=== PATIENT | male | born 2000 | race Caucasian/White ===

== ENCOUNTER 2025-02-01 06:08 | Emergency (ER) | payer MEDICAID, SELFPAY ==
[2025-02-01 06:11] VITALS: BMI 37.1
[2025-02-01 06:16] VITALS: BP 139/84; PULSE 103; RESP 18; TEMP 36.6; O2SAT 99
[2025-02-01] MEDS: cefTRIAXone SOD INJ 1,000 MG VIAL 1000 MG IM (06:35)
[2025-02-01] MEDS: LIDOCAINE HCL 1% 20 ML VIAL 2.1 ML INFL (06:35)
--- NOTE | 2025-02-01 06:36 | EDNOTE_ITS ---
ED Skin Abcess FB-RME/HPI General Chief complaint: Skin/Abscess/Foreign Body Stated complaint: POSSIBLE ABCESS TO TAIL BONE AREA Time Seen by Provider: 02/01/25 06:16 Arrival date/time: 02/01/25 06:08 24-year-old male with no significant medical problems presents to the emergency department today for complaints of infection to his tailbone patient were symptoms ongoing for last couple of days patient reports no fever nausea vomiting but does report significant pain Limitations: no limitations Related Data Home Medications ?Medication ?Instructions ?Recorded ?Confirmed dextroamphetamine-amphetamine 30 70 mg PO QDAY 8 12/09/17 mg tablet (Adderall) Previous Rx's ?Medication ?Instructions ?Recorded clindamycin HCl 300 mg capsule 300 mg PO TID 7 days #2 1 caps 02/01/25 hydrocodone 5 mg-acetaminophen 325 1 tab PO BID PRN pa in #8 tabs 02/01/25 mg tablet ibuprofen 800 mg tablet 800 mg PO TID PRN pain #30 t abs 02/01/25 Allergies Allergy/AdvReac Type Severity Reaction Status Date / Time Penicillins Allergy Intermediate Rash Verified 02/01/25 06:14 Review of Systems Review of Systems Systems Reviewed: All systems reviewed, normal except as documented Constitutional Constitutional: Reports system reviewed and no additional complaints, except as documented, Denies fever(s) and Denies headache(s) Eyes Eyes: Reports system reviewed and no additional complaints, except as documented and Denies blurry vision ENT Ears, Nose, Mouth, and Throat: Reports system reviewed and no additional complaints, except as documented, Denies headache(s), Denies nasal congestion and Denies nasal discharge Cardiovascular Cardiovascular: Reports system reviewed and no additional complaints, except as documented, Denies chest pain and Denies dyspnea Respiratory Respiratory: Reports system reviewed and no additional complaints, except as documented, Denies chest congestion, Denies cough and Denies dyspnea Gastrointestinal Gastrointestinal: Reports system reviewed and no additional complaints, except as documented and Denies abdominal pain Integumentary/Breasts Skin/Breast: Reports system reviewed and no additional complaints, except as documented, Denies rash and Reports other (Pilonidal cyst) Neurologic Neurologic: Reports system reviewed and no additional complaints, except as documented, Reports as per HPI and Denies headache(s) Past Medical History Social History SMOKING STATUS: Never smoker ED Exam General Limitations: Present no limitations General appearance: Present alert and in no apparent distress Head Head exam: Present atraumatic Eye Eye exam: Present normal appearance, PERRL and EOMI ENT ENT exam: Present normal exam, normal oropharynx and mucous membranes moist Neck Neck exam: Present normal inspection, full ROM and trachea midline Chest Chest inspection: Present normal inspection and symmetric chest wall rise Respiratory Respiratory exam: Present normal lung sounds bilaterally Cardiovascular Cardiovascular exam: Present regular rate, normal rhythm and normal heart sounds Abdominal Exam Abdominal exam: Present soft and normal bowel sounds Extremities Exam Extremities exam: Present normal inspection and full ROM Back Exam Back exam: Present normal inspection and full ROM Neurological Exam Neurological exam: Present alert, oriented X3, CN II-XII intact, normal gait and reflexes normal; Absent motor sensory deficit Psychiatric Psychiatric exam: Present normal affect and normal mood Skin Skin exam: Present warm, dry and other (Infected pilonidal cyst) Course Quality Measures none Orders Category Date Time Status Set Up Suture Tray STAT Care 02/01/25 06:17 Active Wound Care NOW Care 02/01/25 06:17 Active HYDROcodone*/APAP 5/325 [Jackson 5/325] Med 02/01/25 06:17 Discontinued 1 tab PO X1 ONE Lidocaine 1% 20 ml [Xylocaine 1% 20 ML] Med 02/01/25 06:17 Discontinued 2.1 ml INFL X1 ONE Lidocaine 1% 20 ml [Xylocaine 1% 20 ML] Med 02/01/25 06:17 Discontinued 20 ml INFL X1 ONE TET,DIP/PERT AC (Adult)-Tdap [Boostrix Adult (Tdap) Med 02/01/25 06:17 Discontinued Vacc] 0.5 ml IMI .ONCE ONE cefTRIAXone [Rocephin] Med 02/01/25 06:17 Discontinued 1,000 mg IM X1 ONE Vital Signs Vital signs: Vital Signs Temperature 97.8 F 02/01/25 06:16 Pulse Rate 103 H 02/01/25 06:16 Respiratory Rate 18 02/01/25 06:16 Blood Pressure 139/84 H 02/01/25 06:16 Pulse Oximetry (%) 99 02/01/25 06:16 Oxygen Delivery Method Room Air 02/01/25 06:16 O2 saturation 99% on room air with normal limits Skin / Abscess / Foreign Body MDM Narrative MDM Narrative:: 24-year-old male with no significant medical problems presents to the emergency department today for complaints of infection to his tailbone patient were symptoms ongoing for last couple of days patient reports no fever nausea vomiting but does report significant pain On exam patient has what appears to be an infected pilonidal cyst I&D performed copious amounts of discharge/pus removed The area of concern has shrunk significantly. Patient given antibiotics and pain medication Patient discharged home in no distress to follow-up with primary care doctor in the next 24 to 48 hours and for any worsening symptoms to return to the ER immediately Patient data External records reviewed:: [facility] previous records Clinical information provided by:: patient Social determinants that could affect healthcare access:: none Patient has the following chronic illnesses:: None How is presenting disease/condition affected by chronic disease/condition?: no chronic disease Evaluation data The following diagnostics were reviewed and interpreted by me:: other (specify) (N/A) Lab and/or radiology exams considered but not ordered:: Consider not ordered Interpretation Summary: N/A Medications / Prescriptions Medications or Prescriptions considered but not ordered:: Given Medication administrations:: Medication Administration History Discontinued Medications Hydrocodone Bitart/Acetaminophen (Hydrocodone/Apap 5/325 Tablet) 1 tab PO X1 ONE Stop: 02/01/25 06:18 Last Admin: 02/01/25 06:38 Dose: 1 tab Documented By: CVL Ceftriaxone Sodium (Ceftriaxone Sod Inj 1,000 Mg Vial) 1,000 mg IM X1 ONE Stop: 02/01/25 06:18 Last Admin: 02/01/25 06:35 Dose: 1,000 mg Documented By: CVL Diphtheria/Tetanus/Acell Pertussis (Diphth,Pertuss(Acell),Tet Vac 0.5 Ml Syr- Adult) 0.5 ml IMi .ONCE ONE Stop: 02/01/25 06:18 Lidocaine HCl (Lidocaine Hcl 1% 20 Ml Vial) 20 ml INFL X1 ONE Stop: 02/01/25 06:18 Last Admin: 02/01/25 06:38 Dose: 20 ml Documented By: CVL Lidocaine HCl (Lidocaine Hcl 1% 20 Ml Vial) 2.1 ml INFL X1 ONE Stop: 02/01/25 06:18 Last Admin: 02/01/25 06:35 Dose: 2.1 ml Documented By: CVL Comments: mixed with rocephine Given Consultations Consultation(s) initiated? (list below): No Diagnosis Skin/Abscess Differential Diagnosis: abscess of skin or subcutaneous tissue, cellulitis and other (Infected pilonidal cyst) Most likely diagnosis given after review of the tests above:: Infected pilonidal cyst Admission Indicated Admission indicated?: not indicated Admission Request Was there a request for admission?: No Disposition Plan Disposition Plan: Discharge Discharge Attestation Discharge Attestation: The patient and all family members were given an opportunity to ask questions and understood the discharge instructions. Discharge instructions specifically effects, indications for sooner follow up or return to the emergency department, and the expected course of current diagnosis. Patient condition: Stable Discharge Plan Plan Patient Disposition: HOME (Self Care) Discharge Disposition comment: Stable Prescriptions/Referrals Prescriptions/Med Rec: New clindamycin HCl 300 mg capsule 300 mg PO TID 7 Days Qty: 21 0RF ibuprofen 800 mg tablet 800 mg PO TID PRN (Reason: pain) Qty: 30 0RF hydrocodone-acetaminophen 5-325 mg tablet 1 tab PO BID MDD 10 PRN (Reason: pain) Qty: 8 0RF No Action dextroamphetamine-amphetamine [Adderall] 30 mg Tablet 70 mg PO QDAY Problem List Clinical Impression: Infected pilonidal cyst Patient/Caregiver Discharge Instructions Education Materials: Pilonidal Cyst Additional Instructions: Please follow up with your primary care doctor in the next 24-48hrs for any worsening symptoms return here immediately Print Language: Georgian Stand Alone Forms: [employer] Award Info., Work/School Release, Patient Portal Info Letter PA/ENVIRONMENTAL ADVISOR Supervising Physician PA/ENVIRONMENTAL ADVISOR Supervising Physician: Dr. Celaya
[2025-02-01] MEDS: LIDOCAINE HCL 1% 20 ML VIAL INFL (06:38)
[2025-02-01] MEDS: HYDROcodone/APAP 5/325 TABLET 1 TAB PO (06:38)
[2025-02-01] MEDS: DIPHTH,PERTUSS(ACELL),TET VAC 0.5 ML SYR- ADULT IMi (06:44)
[2025-02-01 06:53] VITALS: RESP 16
== END 2025-02-01 06:55 | disposition home or self-care (01) ==
PROVIDERS: Emergency Provider Emergency Medicine
DX: L05.91 Pilonidal cyst without abscess (principal)
CPT/HCPCS: 10080; 90715; 96372; 99284; J0696; J3490; A9270

== ENCOUNTER 2025-04-14 23:45 | Emergency (ER) | payer SELFPAY ==
[2025-04-14 23:47] VITALS: BMI 37.3
[2025-04-15 00:07] VITALS: BP 138/88; PULSE 94; RESP 18; TEMP 37.2; O2SAT 97
--- NOTE | 2025-04-15 00:27 | XR_ITS ---
Examination: CT brain head without contrast. 2-D sagittal coronal reconstructions Date and time of exam:April 15, 2025, 0036 hrs., Comparison 04/05/2012 Indications: Ground-level fall today with laceration to the head CTDI: vol (mGy):56 DLP: (mGycm):1221 Technique: Multiple CT axial sections of the brain have been obtained, 5 mm slice thickness. Contrast has not been administered. 2-D sagittal, coronal reconstructions have been obtained Low dose protocols were performed. One or more of the following dose reduction techniques were used; automated exposure control, adjustment of the mA and/or KV according to patient size, use of iterative reconstruction technique. Findings: No significant ventricular enlargement. Intra-axial or extra-axial hemorrhage density is not seen. No mass effect or midline shift Basal cisterns are not remarkable. Fourth ventricle is midline. Cranial vault intact. Impression: Negative for acute hemorrhage, mass effect or midline shift Advise clinical correlation follow-up accordingly
--- NOTE | 2025-04-15 00:35 | PD.EDHEAD ---
ED Head Injury RME/HPI General Chief complaint: Head Injury Stated complaint: HEAD INJURY Time Seen by Provider: 04/15/25 00:27 Arrival date/time: 04/14/25 23:45 24M with no significant PMH presents to ED with head pain/lac after falling back while sitting and hitting back of head at work. Patient denies LOC, AMS, seizures, N/V, and vision changes. Nothing coming out of ears/nose. Patient has had a tetanus shot in the past 5 years. Limitations: no limitations Related Data Home Medications ?Medication ?Instructions ?Recorded ?Confirmed dextroamphetamine-amphetamine 30 70 mg PO QDAY 12/09/17 12/09/17 mg tablet (Adderall) Previous Rx's ?Medication ?Instructions ?Recorded hydrocodone 5 mg-acetaminophen 325 1 tab PO BID PRN pain #8 tabs 02/01/25 mg tablet ibuprofen 800 mg tablet 800 mg PO TID PRN pain #30 tabs 02/01/25 Allergies Allergy/AdvReac Type Severity Reaction Status Date / Time Penicillins Allergy Intermediate Rash Verified 04/14/25 23:51 Review of Systems Review of Systems Systems Reviewed: All systems reviewed, normal except as documented Integumentary/Breasts Skin/Breast: Reports as per HPI and Reports skin pain Past Medical History Social History SMOKING STATUS: Never smoker ED Exam General Limitations: Present no limitations General appearance: Present alert and in no apparent distress Expanded Head Exam Head exam physical: Present laceration (1 cm superficial posterior scalp) Eye Eye exam: Present normal appearance, PERRL and EOMI Neck Neck exam: Present normal inspection, full ROM and trachea midline Chest Chest inspection: Present normal inspection and symmetric chest wall rise Neurological Exam Neurological exam: Present alert and oriented X3 Psychiatric Psychiatric exam: Present normal affect and normal mood Skin Skin exam: Present warm, dry, intact and normal color Course Quality Measures none Orders Category Date Time Status Wound Care NOW Care 04/15/25 00:[address] head/brain wo con Stat Exams 04/15/25 00:27 Taken Vital Signs Vital signs: Vital Signs Temperature 98.9 F 04/15/25 00:07 Pulse Rate 94 04/15/25 00:07 Respiratory Rate 18 04/15/25 00:07 Blood Pressure 138/88 H 04/15/25 00:07 Pulse Oximetry (%) 97 04/15/25 00:07 Oxygen Delivery Method Room Air 04/15/25 00:07 O2 at 97% on RA and WNLs Head Injury MDM Narrative MDM Narrative:: 24M with no significant PMH presents to ED with head pain/lac after falling back while sitting and hitting back of head at work. Patient denies LOC, AMS, seizures, N/V, and vision changes. Nothing coming out of ears/nose. Patient has had a tetanus shot in the past 5 years. Physical exam reveals superficial 1 cm head lac on posterior of scalp. Neck ROM intact. Speech normal. Normal pupil response and EOM. Patient is afebrile, calm, and alert. Wound cleaned. Patient and partner want CT, which was unremarkable based on [place]. Patient data External records reviewed:: [facility] previous records Clinical information provided by:: patient Social determinants that could affect healthcare access:: none Patient has the following chronic illnesses:: none How is presenting disease/condition affected by chronic disease/condition?: no chronic disease Evaluation data The following diagnostics were reviewed and interpreted by me:: radiology exam(s) Lab and/or radiology exams considered but not ordered:: ordered Interpretation Summary: above Medications / Prescriptions Medications or Prescriptions considered but not ordered:: not ordered Medication administrations:: n/a Consultations Consultation(s) initiated? (list below): No Diagnosis Differential diagnosis head injury: concussion without loss of consciousness, epidural hematoma, closed head injury, subarachnoid hematoma, postconcussion syndrome, subdural hematoma and other (laceration) Most likely diagnosis given after review of the tests above:: CHI and laceration Admission Indicated Admission indicated?: not indicated Admission Request Was there a request for admission?: No Disposition Plan Disposition Plan: Discharge Discharge Attestation Discharge Attestation: The patient and all family members were given an opportunity to ask questions and understood the discharge instructions. Discharge instructions specifically effects, indications for sooner follow up or return to the emergency department, and the expected course of current diagnosis. Patient condition: Stable Discharge Plan Plan Patient Disposition: HOME (Self Care) Discharge Disposition comment: Stable Prescriptions/Referrals Prescriptions/Med Rec: No Action dextroamphetamine-amphetamine [Adderall] 30 mg Tablet 70 mg PO QDAY ibuprofen 800 mg tablet 800 mg PO TID PRN (Reason: pain) Qty: 30 0RF hydrocodone-acetaminophen 5-325 mg tablet 1 tab PO BID MDD 10 PRN (Reason: pain) Qty: 8 0RF Referrals: Luis Braga MD [Primary Care Provider, Family Practice] - In 1 week Problem List Clinical Impression: Closed head injury, Laceration Patient/Caregiver Discharge Instructions Education Materials: ED Head Injury (Adult) Additional Instructions: Please follow-up with PCP within 24-48 hours and return immediately if symptoms worsen. Print Language: Serbian Stand Alone Forms: Patient Portal Info Letter PA/NURSING STAFF DEVELOPMENT COORDINATOR Supervising Physician PA/NURSING STAFF DEVELOPMENT COORDINATOR Supervising Physician: Dr. Cortez
--- NOTE | 2025-04-15 01:36 | PRELIM_ITS ---
CT scan of the head without intravenous contrast (axial sections with sagittal and coronal reformats) April 15, 2025 0036 hours Clinical History: Fall Comparison: No prior study is available for comparison. Findings: There is no evidence of intracranial hemorrhage, mass effect or midline shift. The ventricles and CSF spaces are unremarkable. The calvarium is intact. The mastoid air cells and the visualized paranasal sinuses are clear. Impression: No evidence of intracranial hemorrhage, midline shift or calvarial fracture. Suggest clinical correlation and follow up accordingly. Report Electronically Signed By: Delbert Anderson 04/15/2025 1:35:41 AM [EST]
== END 2025-04-15 02:07 | disposition home or self-care (01) ==
PROVIDERS: Emergency Provider Emergency Medicine; PCP Family Medicine
DX: S01.01XA Laceration without foreign body of scalp, initial encounter (principal); W07.XXXA Fall from chair, initial encounter; Y93.89 Activity, other specified; Y99.0 Civilian activity done for income or pay
CPT/HCPCS: 70450; 99284

== ENCOUNTER 2025-04-16 11:33 | Emergency (ER) | payer SELFPAY ==
[2025-04-16 11:44] VITALS: BP 156/83; PULSE 80; RESP 16; TEMP 36.9; O2SAT 96
--- NOTE | 2025-04-16 11:51 | EDNOTE_ITS ---
ED General RME/HPI General Chief complaint: General Adult/Misc Complain Stated complaint: CLEARANCE FOR WORK Time Seen by Provider: 04/16/25 11:38 Arrival date/time: 04/16/25 11:33 CC: Low level headache HPI patient is requesting being cleared for work after a fall striking the back of his head at midnight on April 15. The patient is awake alert oriented denies dizziness altered gait loss of consciousness nausea vomiting blurred vision or seeing spots but continues to complain of low-level headache Related Data Home Medications ?Medication ?Instructions ?Recorded ?Confirmed dextroamphetamine-amphetamine 30 70 mg PO QDAY 8 12/09/17 mg tablet (Adderall) Previous Rx's ?Medication ?Instructions ?Recorded hydrocodone 5 mg-acetaminophen 325 1 tab PO BID PRN pa in #8 tabs 02/01/25 mg tablet ibuprofen 800 mg tablet 800 mg PO TID PRN pain #30 t abs 02/01/25 Allergies Allergy/AdvReac Type Severity Reaction Status Date / Time Penicillins Allergy Intermediate Rash Verified 04/16/25 11:37 Review of Systems Review of Systems Narrative Review of Systems: GEN: No fever, no chills, no weight loss EYES: No discharge, no visual changes, no pain HEENT: No ear pain, no congestion, no sore throat PULM: No shortness of breath, no cough, no congestion CV: No chest pain, no dyspnea on exertion, no palpitations GI: No nausea, no vomiting, no diarrhea, no pain, no constipation : No frequency, no urgency, no dysuria MUSC/SKEL: No joint pain, no back pain SKIN: No rash PSYCH: No hallucinations, no depression HEME/LYMPH: No easy bleeding or bruising tendencies NEURO: No weakness, + headache Past Medical History Social History SMOKING STATUS: Never smoker ED Exam Narrative Physical exam: [General: Obese not in any acute distress Head normocephalic HEENT: Within acceptable limits Neck is supple nontender Chest equal chest rise nontender to palpation Respiratory: Clear to auscultation no wheezes crackles or rubs CV: Rate rhythm is regular no murmurs rubs or clicks Abdomen is distended secondary to body habitus soft nontender no masses positive bowel sounds all 4 quadrants Back: No CVA tenderness no spinous process tenderness from cervical spine thoracic and lumbar spine Skin: Intact no petechiae rash induration ulceration or crepitus Extremities: Moving all extremity against resistance cap refill less than 2 seconds neurosensory intact Neuro: Awake alert oriented x3 Glascow coma 15 no focal deficits] cranial nerves II through XII are grossly intact Course Quality Measures none Vital Signs Vital signs: Vital Signs Temperature 98.4 F 04/16/25 11:44 Pulse Rate 80 04/16/25 11:44 Respiratory Rate 16 04/16/25 11:44 Blood Pressure 156/83 H 04/16/25 11:44 Pulse Oximetry (%) 96 04/16/25 11:44 Oxygen Delivery Method Room Air 04/16/25 11:44 Discharge Plan Plan Patient Disposition: HOME (Self Care) Prescriptions/Referrals Prescriptions/Med Rec: No Action dextroamphetamine-amphetamine [Adderall] 30 mg Tablet 70 mg PO QDAY ibuprofen 800 mg tablet 800 mg PO TID PRN (Reason: pain) Qty: 30 0RF hydrocodone-acetaminophen 5-325 mg tablet 1 tab PO BID MDD 10 PRN (Reason: pain) Qty: 8 0RF Problem List Clinical Impression: Headache Patient/Caregiver Discharge Instructions Education Materials: Self-Care for Headaches Print Language: Icelandic Stand Alone Forms: [employer] Award Info., Work/School Release, Patient Portal Info Letter PA/NINO Supervising Physician PA/NINO Supervising Physician: Connor Irwin ENP MDM Narrative Sign Out note: Patient continues to complain of a mild low-grade headache, I am not comfortable clearing this patient back to work at this point Estephania patient typically should follow-up with Workmen's Comp. provider for clearance to return to work. Clinical Information Provided by: patient Medical Records reviewed [facility] Meds/Rx considered, not ordered None Labs/Rad/Tests considered, not ordered None Chronic Illness/Social Conditions which may negatively complicate care or outcome(s)-explain: None or not applicable EKG EKG not done Labs Labs: interpreted by me Imaging Imaging interpretation: interpreted by me Medication Administration(s) none Diagnosis Differential Diagnosis ED Complaint MDM: Closed head injury concussion contusion, headache Diagnoses ruled out and/or further discussions: Headache
== END 2025-04-16 12:15 | disposition home or self-care (01) ==
PROVIDERS: Emergency Provider Emergency Medicine
DX: R51.9 Headache, unspecified (principal); W18.30XA Fall on same level, unspecified, initial encounter
CPT/HCPCS: 99281